=== PATIENT | female | born 1985 | race Caucasian/White ===

== ENCOUNTER 2021-09-07 06:48 | Inpatient (IN) | payer OTHER ==
[2021-09-07] MEDS ORDERED: AMPICILLIN SODIUM 2 GM VIAL ONE (08:00)
[2021-09-07 08:41] LABS: POC NITRAZINE POS
[2021-09-07] MEDS ORDERED: AMPICILLIN - 2 GM in SODIUM CHLORIDE 100 ML IVPB ONE (08:51)
[2021-09-07 08:54] VITALS: BMI 30.4
[2021-09-07] MEDS ORDERED: OXYTOCIN 30 UNITS in 0.9% NS 30 UNIT/500 ML INFUS.BAG IVPB SCH (09:00)
[2021-09-07] MEDS ORDERED: ELECTROLYTE-148 SOLN 1,000 ML IV SCH (09:00)
[2021-09-07 09:19] LABS: BASO % 0.3 % (0-2.0); EOS % 0.9 % (0-4.5); HEMATOCRIT 34.5 % (32.4-45.2); HEMOGLOBIN 11.7 GM/dL (10.7-15.3); LYMPH % 19.6 % (8-40); MCH 31.9 pg (25.7-33.7); MEAN CELL VOLUME 93.8 fl (80-96); MEAN PLT VOLUME 9.2 fl (7.5-11.1); MONO % 8.9 % (3.8-10.2); NEUT % 70.3 % (42.8-82.8); PLATELET COUNT 208 10^3/uL (134-434); RBC 3.68 M/mm3 (3.60-5.2); RDW 14.6 % (11.6-15.6); WHITE BLOOD COUNT 7.2 K/mm3 (4.0-10.0)
[2021-09-07 09:28] LABS: INR 0.97 (0.83-1.09); PROTHROMBIN TIME (PATIENT) 11.3 SEC (9.7-13.0)
[2021-09-07 09:30] LABS: ACTIVATED PTT 25.8 SECONDS (25.2-36.5)
[2021-09-07 09:59] LABS: CALCIUM 8.8 mg/dL (8.5-10.1)
[2021-09-07 10:00] LABS: BLOOD UREA NITROGEN 8.2 mg/dL (7-18)
[2021-09-07 10:03] LABS: CREATININE 0.6 mg/dL (0.55-1.3)
[2021-09-07] MEDS ORDERED: BUTORPHANOL TARTRATE 2 MG/ML VIAL ONE ×2 (11:37→15:14)
[2021-09-07] MEDS ORDERED: AMPICILLIN SODIUM 1 GM VIAL ONE ×2 (11:37→16:06)
[2021-09-07] MEDS: BUTORPHANOL TARTRATE 2 MG/ML VIAL IVPB PRN ×2 (11:40→15:20)
[2021-09-07] MEDS: AMPICILLIN - 1 GM in SODIUM CHLORIDE 100 ML IVPB SCH ×2 (12:05→16:14)
[2021-09-07] MEDS ORDERED: LIDOCAINE HCL 1% PRESERVATIVE FREE - 30ML VIAL ONE (17:14)
[2021-09-07] MEDS ORDERED: OXYTOCIN 20 UNITS in 0.9% NS 20 UNIT/1,000 ML INFUS.BAG IV ONE (17:14)
[2021-09-07] MEDS ORDERED: OXYTOCIN 20 UNITS in 0.9% NS 20 UNIT/1,000 ML INFUS.BAG IV SCH (17:45)
[2021-09-07] MEDS ORDERED: BENZOCAINE 28 GM HEMORRHOIDAL OINTMENT TP PRN (17:45)
[2021-09-07] MEDS ORDERED: ACETAMINOPHEN 325 MG TABLET (FP) PO PRN (17:45)
[2021-09-07] MEDS ORDERED: WITCH HAZEL 50% (TUCKS) 40 PAD/JAR PAD TP PRN (17:45)
[2021-09-07] MEDS ORDERED: BISACODYL 10 MG SUPP.RECT RC PRN (17:45)
[2021-09-07] MEDS ORDERED: BENZOCAINE 20% 57 GM BOTTLE TP PRN (17:45)
[2021-09-07] MEDS ORDERED: METHYLERGONOVINE MALEATE 0.2 MG/1 ML AMP IM PRN (17:45)
[2021-09-07] MEDS ORDERED: IBUPROFEN 600 MG TABLET (FP) PO ONE (19:31)
[2021-09-07] MEDS ORDERED: ACETAMINOPHEN 325 MG TABLET (FP) ONE (19:31)
[2021-09-07] MEDS: IBUPROFEN 600 MG TABLET (FP) PO PRN (19:35)
[2021-09-08] MEDS: AMPICILLIN - 1 GM in SODIUM CHLORIDE 100 ML IVPB SCH (07:32)
[2021-09-08 08:42] LABS: BASO % 0.3 % (0-2.0); EOS % 0.5 % (0-4.5); HEMATOCRIT 36.5 % (32.4-45.2); LYMPH % 15.7 % (8-40); MCH 31.6 pg (25.7-33.7); MEAN CELL VOLUME 95.9 fl (80-96); MEAN PLT VOLUME 9.6 fl (7.5-11.1); MONO % 6.4 % (3.8-10.2); NEUT % 77.1 % (42.8-82.8); PLATELET COUNT 217 10^3/uL (134-434); RBC 3.81 M/mm3 (3.60-5.2); RDW 14.9 % (11.6-15.6)
[2021-09-08] MEDS: FERROUS SO4 325 MG TABLET (FP) PO SCH ×3 (09:27→17:28)
[2021-09-08] MEDS: PRENATAL VITAMINS W/ FOLIC ACID TABLET (FP) PO SCH (09:28)
[2021-09-08] MEDS: IBUPROFEN 600 MG TABLET (FP) PO PRN ×2 (09:28→20:57)
[2021-09-08] MEDS ORDERED: DIPHTH,PERTUSS(ACELL),TET 0.5 ML DISP.SYRIN IM ONE (10:00)
[2021-09-08] MEDS ORDERED: SENNOSIDES/DOCUSATE COMBO (SENNA PLUS) TABLET (UD) PO PRN (22:00)
[2021-09-09 08:45] VITALS: BP 129/76; PULSE 80; TEMP 98
[2021-09-09] MEDS: FERROUS SO4 325 MG TABLET (FP) PO SCH ×2 (09:42→11:25)
[2021-09-09] MEDS: PRENATAL VITAMINS W/ FOLIC ACID TABLET (FP) PO SCH (09:42)
[2021-09-09] MEDS ORDERED: FLU VACC QS2021-22(6MOS UP)/PF 60 MCG/0.5 ML SYRINGE IM ONE (10:00)
== END 2021-09-09 12:50 | disposition home or self-care (01) | DRG 560 ==
LOC: JLDR 06:48 → J3W 21:01
PROVIDERS: ADMIT Obstetrics & Gynecology; ATTEND Obstetrics & Gynecology
PROC: 10E0XZZ Delivery of Products of Conception, External Approach (ICD-10-PCS; principal; 2021-09-07)
PROC: 0W8NXZZ Division of Female Perineum, External Approach (ICD-10-PCS; 2021-09-07)
DX: O42.02 Full-term premature rupture of membranes, onset of labor within 24 hours of rupture (principal); Z3A.38 38 weeks gestation of pregnancy; Z37.0 Single live birth
CPT/HCPCS: 36415; 59409; 71046-TC-FY; 80048; 83986-QW; 85025; 85610; 85730; 86780; 86850; 86900; 86901; 90686; 90715; C9803; G0008; U0003; U0005